=== PATIENT | male | born 1940 | race Caucasian/White ===

== ENCOUNTER → 2016-08-30 | Outpatient (CLI) | payer MEDICARE, OTHER | LOC: RAD 10:50 | PROVIDERS: ATTEND Urology | DX: N20.0 Calculus of kidney (principal) | CPT/HCPCS: 76770 ==

== ENCOUNTER 2018-01-08 09:12 | Day surgery (SDC) | payer MEDICARE, OTHER ==
[~2018-01-08 09:12] MED LIST: DIPHENHYDRAMINE HCL 50 MG/ML VIAL ONE; EPINEPHRINE INJ 1 MG/10 ML DISP.SYRIN ONE; FENTANYL CITRATE INJ/PF 100 MCG/2 ML AMPUL ONE; FLUMAZENIL INJ 0.5 MG/5 ML VIAL ONE; GLUCAGON,HUMAN RECOMB 1 MG INJ ONE; MIDAZOLAM 2 MG/2 ML INJ ONE; NALOXONE HCL INJ/PF 0.4 MG/1 ML SDV ONE
--- NOTE | 2018-01-08 09:53 | Operative Report ---
Operative Report DATE OF SURGERY: 01/08/18 Operative Report: The risks benefits and alternatives of the procedure explained to the patient in detail and informed consent is obtained .A GIF Olympus video scope was inserted into the patient's mouth and hypopharynx, the esophagus is identified intubated and insufflated ,the scope was then advanced through the esophagus stomach and duodenum, retroflexion maneuver is done, the esophagus stomach and first and second portions of the duodenum examined PREOPERATIVE DIAGNOSIS: Dysphagia POSTOPERATIVE DIAGNOSIS: Schatzki's ring status post breakage. Gastritis status post biopsy OPERATION: EGD with biopsy SURGEON: HAILE SERRANO ANESTHESIA: Moderate Sedation - 2 mg of Versed, 25 mcg of fentanyl. Conscious sedation monitoring time 30 minutes. TISSUE REMOVED OR ALTERED: As noted above. COMPLICATIONS: None. ESTIMATED BLOOD LOSS: None. INTRAOPERATIVE FINDINGS: As noted above. PROCEDURE: Patient tolerated procedure well. No immediate postprocedure complications are noted. Patient discharged in good condition. Discharge date 01/08/2018. Discharge diet: Regular. Discharge activity: Regular. 2-3 week follow-up to discuss findings. Patient is instructed to call the office or proceed to the emergency room should there be any further problems or questions.
[2018-01-08 11:00] VITALS: BP 123/63
== END 2018-01-08 11:05 | disposition home or self-care (01) ==
LOC: END 09:12
PROVIDERS: ATTEND Internal Medicine Gastroenterology
DX: K22.2 Esophageal obstruction (principal); K29.70 Gastritis, unspecified, without bleeding; E11.9 Type 2 diabetes mellitus without complications; I10 Essential (primary) hypertension; E78.00 Pure hypercholesterolemia, unspecified; I25.10 Atherosclerotic heart disease of native coronary artery without angina pectoris; E78.5 Hyperlipidemia, unspecified; Z79.82 Long term (current) use of aspirin; Z79.899 Other long term (current) drug therapy; Z79.84 Long term (current) use of oral hypoglycemic drugs; Z88.8 Allergy status to other drugs, medicaments and biological substances; M10.9 Gout, unspecified; G47.30 Sleep apnea, unspecified; N13.30 Unspecified hydronephrosis
CPT/HCPCS: 43239; 82962; 88305 ×2; J2250; J3010; J0171; J1200; J1610; J2310; J3490

== ENCOUNTER 2019-03-27 15:55 | Emergency (ER) | payer OTHER, MEDICARE ==
[2019-03-27 16:00] VITALS: BP 130/67
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
== END 2019-03-27 16:22 | disposition home or self-care (01) ==
LOC: ER 15:55
DX: M54.5 Low back pain (principal); M25.559 Pain in unspecified hip; V44.5XXA Car driver injured in collision with heavy transport vehicle or bus in traffic accident, initial encounter; E11.9 Type 2 diabetes mellitus without complications; I25.10 Atherosclerotic heart disease of native coronary artery without angina pectoris; I10 Essential (primary) hypertension; Z95.5 Presence of coronary angioplasty implant and graft
CPT/HCPCS: 99283

== ENCOUNTER 2020-03-27 15:04 | Emergency (ER) | payer MEDICARE, OTHER ==
--- NOTE | 2020-03-27 15:40 | RADIOLOGY REPORT (SQ) ---
EXAM DESCRIPTION: HIP LEFT AP/LATERAL IMAGES COMPLETED DATE/TIME: 03/27/2020 3:22 pm REASON FOR STUDY: t2- s/p fall with left hip pain/tenderness COMPARISON: None. NUMBER OF VIEWS: Two views. TECHNIQUE: AP pelvis and additional frog-leg view of the left hip. LIMITATIONS: Positioning on the lateral view. FINDINGS: Lucency superior margin of the left greater trochanter. No displaced fracture. Bones are osteopenic. IMPRESSION: Possible fracture of the greater trochanter. Follow-up CT is recommended. TECHNICAL DOCUMENTATION: JOB ID: [id number] 2010 [employer]- All Rights Reserved Reading location - IP/workstation name: [email or web address]
[2020-03-27] MEDS ORDERED: HYDROMORPHONE HCL INJ/PF 2 MG/ML AMPULE IV ONE ×2 (16:13→18:11)
[2020-03-27] MEDS ORDERED: ONDANSETRON HCL INJ/PF 4 MG/2 ML SDV IV ONE ×2 (16:14→18:23)
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
[2020-03-27 17:15] LABS: ABSOLUTE EOSINOPHILS # (AUTO) 0.1 10^3/uL (0.0-0.6); ABSOLUTE LYMPHOCYTES (AUTO) 1.1 10^3/uL (0.5-4.7); ABSOLUTE MONOCYTES (AUTO) 0.3 10^3/uL (0.1-1.4); ABSOLUTE NEUT (AUTO) 5.4 10^3/uL (1.7-8.2); BASOPHILS % (AUTO) 0.5 % (0-2); EOSINOPHILS % (AUTO) 1.8 % (0-6); HEMATOCRIT 35.5 % (37.9-51.0); HEMOGLOBIN 12.1 g/dL (13.5-17.0); MEAN CORPUSCULAR HEMOGLOBIN 33.3 pg (27.0-33.4); MEAN CORPUSCULAR HGB CONC 34.2 g/dL (32.0-36.0); MEAN CORPUSCULAR VOLUME 97 fl (80-97); MONOCYTES % (AUTO) 4.9 % (3-13); PLATELET COUNT 147 10^3/uL (150-450); RED BLOOD COUNT 3.64 10^6/uL (4.35-5.55); RED CELL DISTRIBUTION WIDTH 14.2 % (11.5-14.0); SEGMENTED NEUTROPHILS % (AUTO) 76.8 % (42-78); TOTAL CELLS COUNTED % (AUTO) 100 %
--- NOTE | 2020-03-27 17:26 | RADIOLOGY REPORT (SQ) ---
EXAM DESCRIPTION: CHEST SINGLE VIEW IMAGES COMPLETED DATE/TIME: 03/27/2020 5:14 pm REASON FOR STUDY: pre-op COMPARISON: Chest x-ray 02/13/2013. EXAM PARAMETERS: NUMBER OF VIEWS: One view. TECHNIQUE: Single portable supine frontal radiographic view of the chest acquired. RADIATION DOSE: NA LIMITATIONS: None. FINDINGS: LUNGS AND PLEURA: Airspace opacity noted at the left lung base. No sizable pleural effusi on or pneumothorax. MEDIASTINUM AND HILAR STRUCTURES: No masses. Contour normal. HEART AND VASCULAR STRUCTURES: Heart normal in size. Normal vasculature. BONES: Multilevel degenerative changes at the spine HARDWARE: None in the chest. IMPRESSION: Airspace opacity at the left lung base, may be secondary to atelectasis or pneumonia. TECHNICAL DOCUMENTATION: JOB ID: [id number] 2010 [employer]- All Rights Reserved Reading location - IP/workstation name: [email or web address]
[2020-03-27 17:27] LABS: INTERNATIONAL RATION (INR) 0.93; PROTHROMBIN TIME 12.7 SEC (11.4-15.4)
[2020-03-27 17:28] LABS: PARTIAL THROMBOPLASTIN TIME 30.1 SEC (23.5-35.8)
[2020-03-27 17:31] LABS: ALKALINE PHOSPHATASE 57 U/L (38-126); ANION GAP 13 (5-19); ASPARTATE AMINO TRANSFERASE 58 U/L (17-59); BILIRUBIN,TOTAL 0.4 mg/dL (0.2-1.3); BLOOD UREA NITROGEN 21 mg/dL (7-20); CALCIUM 9.2 mg/dL (8.4-10.2); CARBON DIOXIDE 20 mmol/L (22-30); CHLORIDE 104 mmol/L (98-107); GLUCOSE 162 mg/dL (75-110); POTASSIUM 5.2 mmol/L (3.6-5.0); TOTAL PROTEIN 6.7 g/dL (6.3-8.2)
--- NOTE | 2020-03-27 17:50 | RADIOLOGY REPORT (SQ) ---
EXAM DESCRIPTION: CT PELVIS WITHOUT IMAGES COMPLETED DATE/TIME: 03/27/2020 4:21 pm REASON FOR STUDY: Left hip pain COMPARISON: Left hip radiograph same date. TECHNIQUE: CT scan of the pelvis performed without intravenous or oral contrast. Images reviewed wi th soft tissue and bone windows. Reconstructed coronal and sagittal MPR images reviewed. All images stored on PACS. All CT scanners at this facility use dose modulation, iterative reconstruction, and/or weight based d osing when appropriate to reduce radiation dose to as low as reasonably achievable (ALARA). [facility]: Dose Right [facility]: CareDose [facility]: Dose Right [facility]: Teradose 4D [facility]: Smart Directa Plus RADIATION DOSE: CT Rad equipment meets quality standard of care and radiation dose reduction techniq ues were employed. CTDIvol: 13.1 mGy. DLP: 462 mGy-cm. mGy. LIMITATIONS: None. FINDINGS: PELVIC BONES: There is is a comminuted multipart fracture of the anterior, posterior and s uperior left acetabulum, with fracture lines extending through the superior pubic ramus and a fractur e line extending to the medial left iliac bone. Normal femoroacetabular alignment. The right iliac bone, right superior pubic ramus, and bilateral inferior pubic rami are intact. VISUALIZED SPINE: No acute findings. HIP(S): Very subtle lucency through the anterior left femoral head suspicious for impaction fracture. No femoral head collapse. [facility] the left femoral neck and greater trochanter are intact. PELVIC SOFT TISSUES: There is a large pelvic hematoma adjacent to the left pelvic side wall and invol ving the left inguinal canal measuring 9.9 x 3.3 cm on axial images and extending 12.3 cm from crania l caudal on coronal images. There is mass effect with free fluid within the peritoneum in the left p dez. Flattening of the left bladder wall secondary to mass effect. There is colonic diverticulosi s without evidence of diverticulitis. Prostate has normal size. EXTRAPELVIC SOFT TISSUES: No significant findings. OTHER: No other significant finding. IMPRESSION: 1. Acute multipart fracture of the anterior and posterior left acetabulum, with involvement of the le ft iliac bone and left superior pubic ramus. There is intraperitoneal and extraperitoneal hematoma i n the left pelvis, with surrounding free fluid, concerning for vascular injury. Further evaluation w ith CT angiography is recommended to evaluate for active extravasation. 2. Colonic diverticulosis without evidence of diverticulitis. COMMENT: Findings discussed with Dr. Kim on 03/27/2020 at 1740 hours. TECHNICAL DOCUMENTATION: JOB ID: [id number] Quality ID # [id number]: Final reports with documentation of one or more dose reduction techniques (e.g., Au tomated exposure control, adjustment of the mA and/or kV according to patient size, use of iterative reconstruction technique) 2010 [employer]- All Rights Reserved Reading location - IP/workstation name: [email or web address]
[2020-03-27 18:11] LABS: APPEARANCE,URINE CLEAR; BILIRUBIN,URINE NEGATIVE (NEGATIVE); COLOR,URINE YELLOW; GLUCOSE, URINE NEGATIVE (NEGATIVE); KETONES,URINE 20 mg/dL (NEGATIVE); PROTEIN,URINE NEGATIVE (NEGATIVE); URINE SPECIFIC GRAVITY 1.019; UROBILINOGEN,URINE NEGATIVE mg/dL (<2.0)
[2020-03-27 19:08] VITALS: BP 126/71
--- NOTE | 2020-03-27 19:37 | RADIOLOGY REPORT (SQ) ---
EXAM DESCRIPTION: CTA PELVIS IMAGES COMPLETED DATE/TIME: 03/27/2020 6:08 pm REASON FOR STUDY: Trauma/pelvic fracture with hemorrhage COMPARISON: None. TECHNIQUE: CT scan of the mid abdomen through the pelvis performed with intravenous contrast using h elical scanning technique with dynamic intravenous contrast injection. Images reviewed with lung, sof t tissue, and bone windows. Reconstructed coronal and sagittal MPR images reviewed. All images stored on PACS. Advanced 3D imaging as volume rendering, MIPS, SSD performed? Yes All CT scanners at this facility use dose modulation, iterative reconstruction, and/or weight based d osing when appropriate to reduce radiation dose to as low as reasonably achievable (ALARA). [facility]: Dose Right [facility]: CareDose [facility]: Dose Right [facility]: Teradose 4D [facility]: Smart Venus Concept CONTRAST TYPE AND DOSE: contrast/concentration: Isovue 350.00 mmol/ml; Total Contrast Delivered: 96. 0 ml; Total Saline Delivered: 90.0 ml RENAL FUNCTION: GFR > 60. LIMITATIONS: None. FINDINGS: POST-CONTRAST IMAGING: AORTA AND VESSELS: The infrarenal abdominal aorta has normal caliber. Bilateral common iliac, internal review and audit compliance al and external iliac arteries are well opacified with contrast. There is no evidence of active extr avasation from the left external iliac artery. SOFT TISSUES: The left pelvic hematoma and small amount of free fluid in the left pelvis is stable f rom recent CT earlier today. A Schmidt catheter has been placed in the urinary bladder which is now de compressed. Colonic diverticulosis without evidence of diverticulitis. No bowel obstruction. ABDOMINAL WALL: No masses. No hernias. BONY STRUCTURES: Acute multipart fracture of the left acetabulum as previously described. OTHER: No other significant finding. IMPRESSION: 1. No evidence of active extravasation on arterial phase CT of the pelvis. 2. Stable appearance of the left pelvic hematoma. 3. Multipart left acetabular fracture is stable. TECHNICAL DOCUMENTATION: JOB ID: [id number] Quality ID # [id number]: Final reports with documentation of one or more dose reduction techniques (e.g., Au tomated exposure control, adjustment of the mA and/or kV according to patient size, use of iterative reconstruction technique) 2010 [employer]- All Rights Reserved Reading location - IP/workstation name: [email or web address]
--- NOTE | 2020-03-27 20:38 | EKG REPORT ---
SEVERITY:- BORDERLINE ECG - SINUS RHYTHM BORDERLINE LEFT AXIS DEVIATION BORDERLINE T ABNORMALITIES, ANT-LAT LEADS : Confirmed by: To Wilcox MD 27-Mar-2020 20:37:54
== END 2020-03-27 19:50 | disposition short-term general hospital (02) ==
LOC: ER 15:04
DX: S32.9XXA Fracture of unspecified parts of lumbosacral spine and pelvis, initial encounter for closed fracture (principal); S30.0XXA Contusion of lower back and pelvis, initial encounter; M25.552 Pain in left hip; R10.2 Pelvic and perineal pain; W10.9XXA Fall (on) (from) unspecified stairs and steps, initial encounter; E11.9 Type 2 diabetes mellitus without complications; Z79.899 Other long term (current) drug therapy; Z79.02 Long term (current) use of antithrombotics/antiplatelets; Z79.82 Long term (current) use of aspirin; I25.10 Atherosclerotic heart disease of native coronary artery without angina pectoris
CPT/HCPCS: 93005; 96376; 99285; 51702; 96374; 96375; 36415; 85025; 85610; 85730; 80053; 81001; 71045; 73502; 72192; 72191; 93010; J1170; J2405